=== PATIENT | male | born 1980 | race Caucasian/White ===

== ENCOUNTER 2016-03-30 18:36 | Emergency (ER) | payer OTHER ==
[2016-03-30 19:09] VITALS: BP 113/50
--- NOTE | 2016-03-30 19:15 | ER Document Report ---
ED Medical Screen (RME) - General Chief Complaint: Vomiting Stated Complaint: VOMITING,FEVER,DIZZY Time seen by provider: 19:15 Mode of Arrival: Ambulatory Information source: Patient Notes: 35-year-old male complaining of sore throat, coughing for 3 weeks, and vomiting since 4 PM. He thinks he has strep throat. He finished a Z-Rolando that was prescribed by his primary care doctor yesterday. Chest pain or shortness of breath. No abdominal pain. Lungs Clear in triage. I have greeted and performed a rapid initial assessment of this patient. A comprehensive ED assessment, evaluation of the patient, analysis of test results , and completion of the medical decision making process will be contacted by additional ED providers. TRAVEL OUTSIDE OF THE [place] IN LAST 30 DAYS: No - Related Data Allergies/Adverse Reactions: Penicillins Allergy (Intermediate, Verified 03/15/15 20:08) Generalized rash Past Medical History - Past Medical History Cardiac Medical History: Denies: Hx Coronary Artery Disease, Hx Heart Attack, Hx Hypertension Pulmonary Medical History: Denies: Hx Asthma, Hx Bronchitis, Hx COPD, Hx Pneumonia Neurological Medical History: Denies: Hx Cerebrovascular Accident, Hx Seizures Musculoskeltal Medical History: Reports Hx Arthritis - KNEES - Immunizations Hx Diphtheria, Pertussis, Tetanus Vaccination: Yes Physical Exam - Vital signs Vitals: Temp Pulse Resp BP Pulse Ox 99.2 F 86 14 113/50 L 96 03/30/16 19:07 03/30/16 19:07 03/30/16 19:07 03/30/16 19:07 03/30/16 19:07 Course - Vital Signs Vital signs: Temp Pulse Resp BP Pulse Ox 99.2 F 86 14 113/50 L 96 03/30/16 19:07 03/30/16 19:07 03/30/16 19:07 03/30/16 19:07 03/30/16 19:07
== END 2016-03-31 00:10 | disposition left against medical advice (07) ==
LOC: ER 18:36
DX: Z53.9 Procedure and treatment not carried out, unspecified reason (principal); R11.10 Vomiting, unspecified; R50.9 Fever, unspecified; R42 Dizziness and giddiness
CPT/HCPCS: 71020; 99281